=== PATIENT | female | born 1995 | race Caucasian/White ===

== ENCOUNTER 2017-08-09 07:58 | Emergency (ER) | payer OTHER ==
[~2017-08-09] VITALS: Ht 162.6 cm; Wt 68.0 kg
--- NOTE | 2017-08-09 07:58 | NUR ---
Patient was BIBA and taken to bed 03 via gurney.
[2017-08-09 08:00] VITALS: BP 132/85
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
[2017-08-09] MEDS ORDERED: KETOROLAC 30 MG/ML VIAL IM ONE (08:10)
[2017-08-09] MEDS ORDERED: CYCLOBENZAPRINE 10 MG TAB PO ONE (08:10)
--- NOTE | 2017-08-09 08:32 | NUR ---
[facility] AT BEDSIDE.
--- NOTE | 2017-08-09 08:40 | NUR ---
PT TAKEN TO CT VIA W/C ACCOMPANIED BY [employer] AT THIS TIME.
[2017-08-09 10:03] VITALS: BP 117/69
--- NOTE | 2017-08-09 10:03 | NUR ---
Patient discharged with v/s stable. Written and verbal after care instructions given and explained. Patient alert, oriented and verbalized understanding of instructions. Ambulatory with steady gait. All questions addressed prior to discharge. ID band removed. Patient advised to follow up with PMD. Rx of FLEXERIL 5MG TAB & NAPROXEN 500MG TAB given. Patient educated on indication of medication including possible reaction and side effects. Opportunity to ask questions provided and answered.
== END 2017-08-09 10:03 | disposition home or self-care (01) ==
LOC: MED 07:58
DX: R51 Headache (principal); R41.0 Disorientation, unspecified; M54.2 Cervicalgia; M54.6 Pain in thoracic spine; V43.52XA Car driver injured in collision with other type car in traffic accident, initial encounter; Y93.I9 Activity, other involving external motion; Y92.488 Other paved roadways as the place of occurrence of the external cause; Y99.8 Other external cause status
CPT/HCPCS: 70450; 72125; 72128; 81025; 96372; 99284; J1885; J7030